=== PATIENT | female | born 1960 | race Caucasian/White ===

== ENCOUNTER 2023-06-09 17:46 | Emergency (ER) | payer OTHER ==
[2023-06-09 18:30] VITALS: RESP 20; TEMP 97.9
[2023-06-09] MEDS ORDERED: TORAdol 30 mg Injection IV ONE (19:08)
--- NOTE | 2023-06-09 19:14 | ERPHSYRPT ---
- History of Present Illness Time Seen by Provider: 06/09/23 19:00 Historian: patient Exam Limitations: no limitations Patient Subjective Stated Complaint: pt reports LLQ abd pain with cramping, urinary frequency, urgency and dribbling Triage Nursing Assessment: pt is aox3, pt appears in pain, pupils perrl, afebrile, resps easy and non labored, cap refill < 3 seconds, radial pulses strong and equal, pt abd soft, tender to the LLQ, bowel sounds present, hyperactive, pt skin pink warm dry. Physician History: 63 years old female with past medical history of hyperlipidemia, presenting to the emergency room complaining of left lower quadrant abdominal pain described as spasms that she has been having for the last couple of hours with nausea and vomiting x4. She is also having loose bowel movements but no bleeding per rectum. The patient is also having some urinary frequency and not sure if she is having UTI. She had UTIs in the past and it feels the same. She is having the chills. She took some tdfi-[id number]-[id number] pain medications, she does not recall the name but that did not seem to help with her pain. Allergies/Adverse Reactions: No Known Drug Allergies Allergy (Unverified 06/09/23 18:29) Home Medications: Escitalopram Oxalate [Lexapro] 10 mg PO DAILY 06/09/23 [History] Thyroid,Pork [[place] Thyroid] 15 mg PO DAILY 06/09/23 [History] Hx Tetanus, Diphtheria Vaccination/Date Given: Yes Hx Influenza Vaccination/Date Given: Yes Hx Pneumococcal Vaccination/Date Given: No Immunizations Up to Date: Yes Travel Risk - International Travel Have you traveled outside of the country in past 3 weeks: No - Coronavirus Screening Are you exhibiting any of the following symptoms?: No Close contact with a COVID-19 positive Pt in past 14-21 Days: No - Vaccine Status Have you recieved a Covid-19 vaccination: Yes 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 - Vaccination Dates Dates if Unknown: unk - Review of Systems Constitutional: No Symptoms, Chills Eyes: No Symptoms Ears, Nose, & Throat: No Symptoms Respiratory: No Cough, No Dyspnea Cardiac: No Chest Pain, No Edema, No Syncope Abdominal/Gastrointestinal: Abdominal Pain, Nausea, Vomiting, Diarrhea Genitourinary Symptoms: Frequency, No Dysuria Musculoskeletal: No Back Pain, No Neck Pain Skin: No Rash Neurological: No Dizziness, No Focal Weakness, No Sensory Changes Psychological: No Symptoms Endocrine: No Symptoms All Other Systems: Reviewed and Negative - Past Medical History Neurological History: No Pertinent History Cardiac History: High Cholesterol Respiratory History: Other Endocrine Medical History: Hypothyroidism Musculoskeletal History: Other Other Medical History: hysterectomy (1994), COVID-19, seasonal allergies - Past Surgical History Past Surgical History: Yes Female Surgical History: Hysterectomy - Social History Smoking Status: Never smoker Exposure to second hand smoke: No Drug Use: none Patient Lives Alone: No - Nursing Vital Signs Nursing Vital Signs: Initial Vital Signs Temperature 97.9 F 06/09/23 18:17 Pulse Rate 67 06/09/23 18:17 Respiratory Rate 20 06/09/23 18:17 Blood Pressure 135/77 06/09/23 18:17 O2 Sat by Pulse Oximetry 99 06/09/23 18:17 Pain Scale Pain Intensity 4 - Physical Exam General Appearance: no apparent distress, alert Eye Exam: PERRL/EOMI, eyes nml inspection Ears, Nose, Throat Exam: normal ENT inspection, pharynx normal, moist mucous membranes Neck Exam: normal inspection, non-tender, supple, full range of motion Respiratory Exam: normal breath sounds, lungs clear, No respiratory distress Cardiovascular Exam: regular rate/rhythm, normal heart sounds Gastrointestinal/Abdomen Exam: soft, tenderness, other (Patient is having left lower quadrant tenderness and suprapubic tenderness.), No mass Back Exam: normal inspection, normal range of motion, No CVA tenderness, No vertebral tenderness Extremity Exam: normal inspection, normal range of motion, pelvis stable Neurologic Exam: alert, oriented x 3, cooperative, normal mood/affect, nml cerebellar function, sensation nml, No motor deficits Skin Exam: normal color, warm, dry SpO2: 99 Ordered Tests: Active Orders 24 hr Category Date Time Status CBC W DIFF Stat Lab 06/09/23 19:25 Completed CMP Stat Lab 06/09/23 19:25 Completed CULTURE,URINE Stat Lab 06/09/23 19:10 Received LIPASE Stat Lab 06/09/23 19:25 Completed UA W/RFX UR CULTURE Stat Lab 06/09/23 19:10 Completed Medication Summary Discontinued Medications Generic Name Dose Route Start Last Admin Trade Name Freq PRN Reason Stop Dose Admin Piperacillin Sod/Tazobactam 100 mls @ 200 mls/hr 06/09/23 20:13 06/09/23 20:22 Sod 3.375 gm/ Sodium Chloride IV 06/09/23 20:42 200 mls/hr STAT ONE Administration Sodium Chloride Confirm 06/09/23 20:21 Sodium Chloride 100ml Mini-Bag Plus Administered 06/09/23 20:22 Dose 100 mls @ ud IV .STK-MED ONE Ketorolac Tromethamine 30 mg 06/09/23 19:08 06/09/23 19:33 Ketorolac Tromethamine 30 Mg/Ml Inj IV 06/09/23 19:09 30 mg STAT ONE Administration Ketorolac Tromethamine Confirm 06/09/23 19:31 Ketorolac Tromethamine 30 Mg/Ml Inj Administered 06/09/23 19:32 Dose 30 mg .ROUTE .STK-MED ONE Piperacillin Sod/Tazobactam Sod Confirm 06/09/23 20:21 Piperacillin/Tazobactam Sodium 3.375 Gm Vial Administered 06/09/23 20:22 Dose 3.375 gm IV .STK-MED ONE Lab/Rad Data: Laboratory Result Diagrams 06/09/23 19:25 06/09/23 19:25 Laboratory Results 06/09/23 06/09/23 06/09/23 Range/Units 19:25 19:25 19:10 WBC 16.8 H (4.0-10.5) x10^3/uL RBC 4.81 (4.1-5.4) x10^6/uL Hgb 15.0 (12.0-16.0) g/dL Hct 44.5 (35-47) % MCV 92.5 (78-100) fL MCH 31.2 (26-32) pg MCHC 33.7 (32-36) g/dL RDW 11.6 (11.5-14.0) % Plt Count 261 (150-450) x10^3/uL MPV 8.9 (7.5-11.0) fL Gran % 88.3 H (36.0-66.0) % Immature Gran % (Auto) 0.3 (0.00-0.4) % Nucleat RBC Rel Count 0.0 (0.00-0.1) % Eos # (Auto) 0.01 (0-0.5) x10^3/uL Immature Gran # (Auto) 0.05 H (0.00-0.03) x10^3u/L Absolute Lymphs (auto) 1.03 (1.0-4.6) x10^3/uL Absolute Monos (auto) 0.83 (0.0-1.3) x10^3/uL Absolute Nucleated RBC 0.00 (0.00-0.01) x10^3u/L Lymphocytes % 6.1 L (24.0-44.0) % Monocytes % 5.0 (0.0-12.0) % Eosinophils % 0.1 (0.00-5.0) % Basophils % 0.2 (0.0-0.4) % Absolute Granulocytes 14.79 H (1.4-6.9) x10^3/uL Basophils # 0.04 (0-0.4) x10^3/uL Sodium 138 (137-145) mmol/L Potassium 3.5 (3.5-5.1) mmol/L Chloride 102 (98-107) mmol/L Carbon Dioxide 27 (22-30) mmol/L Anion Gap 12.9 (5-15) MEQ/L BUN 18 H (7-17) mg/dL Creatinine 0.63 (0.52-1.04) mg/dL Estimated GFR 99.0 ML/MIN Glucose 99 (74-106) mg/dL Calcium 9.6 (8.4-10.2) mg/dL Total Bilirubin 0.50 (0.2-1.3) mg/dL AST 27 (14-36) U/L ALT 32 (0-35) U/L Alkaline Phosphatase 55 (38-126) U/L Serum Total Protein 7.0 (6.3-8.2) g/dL Albumin 4.5 (3.5-5.0) g/dL Lipase 445 H (23-300) U/L Urine Color [place] A (Yellow) Urine Appearance Cloudy A (Clear) Urine pH 5.0 (4.6-8.0) Ur Specific [place] 1.025 (1.005-1.030) Urine Protein 100 A (Negative) Urine Glucose (UA) Negative (Negative) mg/dL Urine Ketones Trace A (Negative) Urine Blood Negative (Negative) Urine Nitrite Positive A (Negative) Urine Bilirubin Small A (Negative) Urine Urobilinogen 1.0 A (0.2) mg/dL Ur Leukocyte Esterase Large A (Negative) U Hyaline Cast (Auto) NONE SEEN (0-2) /LPF Urine Microscopic RBC 3-5 (0-5) /HPF Urine Microscopic WBC >100 A (0-5) /HPF Ur Epithelial Cells None Seen (None Seen) /HPF Urine Bacteria Few A (None Seen) /HPF Urine Culture Reflexed YES (NO) - Progress Progress: unchanged, re-examined Progress Note: 06/09/23 19:13 63 years old female with past medical history of hyperlipidemia, presenting to the emergency room complaining of left lower quadrant abdominal pain described as spasms that she has been having for the last couple of hours with nausea and vomiting x4. She is also having loose bowel movements but no bleeding per rectum. The patient is also having some urinary frequency and not sure if she is having UTI. She had UTIs in the past and it feels the same. She is having the chills. She took some lyls-ecv-csanqin pain medications, she does not recall the name but that did not seem to help with her pain. Emergency room course and medical decision making. UTI Diverticulitis Kidney stone Hernia. The patient be given Toradol 30 mg IV, check CBC, CMP, UA, lipase. 06/09/23 20:15 The patient's work-up revealed elevated white count 16.8 hemoglobin 15 hematocrit 44. Urinalysis positive nitrites, more than 100 white blood cells, large leukocyte esterase and few bacteria. Her lipase elevated at 445. We will order a CT scan of abdomen and pelvis with contrast. 06/09/23 21:11 The patient is feeling much better after the above treatment. She is refusing the CAT scan of the abdomen and pelvis bleeding etc. UTI. She is also requesting sulfa medications claiming that is the only antibiotic which works for her. The patient will be discharged home on Bactrim DS twice a day for 7 days. She needs to rest increase her fluid intake. Follow-up with your family physician in 2 to 3 days. Follow-up as needed for any worsening symptoms. - Departure Departure Disposition: Home Clinical Impression: UTI (urinary tract infection), Left lower quadrant abdominal pain Condition: Stable Critical Care Time: No Referrals: Kristen WALKER [Primary Care Provider] - Follow up/PCP as directed Prescriptions: Smz/Tmp Ds Tablet [Bactrim Ds Tablet] 1 udtab PO BID #14 tablet
[2023-06-09 19:30] LABS: ADD URINE CULTURE? YES (NO); Appearance Cloudy (Clear); Bacteria Few /HPF (None Seen); Bilirubin Small (Negative); Blood Negative (Negative); Epithelial Cells None Seen /HPF (None Seen); Glucose, Urine Negative (Negative); Hyaline Casts NONE SEEN /LPF (0-2); Ketones Trace (Negative); Leukocyte Esterase Large (Negative); Nitrite Positive (Negative); Protein,Urine Dip 100 (Negative); Specific Gravity 1.025 (1.005-1.030); WBC >100 /HPF (0-5)
[2023-06-09 19:30] LABS: Absolute Neutrophil Ct (ANC) 14.79 x10^3/uL (1.4-6.9); BASOPHIL % 0.2 % (0.0-0.4); Basophil (Absolute #) 0.04 x10^3/uL (0-0.4); Eosinophil % 0.1 % (0.00-5.0); Eosinophil (Absolute #) 0.01 x10^3/uL (0-0.5); Hematocrit 44.5 % (35-47); IMMATURE GRAN # 0.05 x10^3u/L (0.00-0.03); IMMATURE GRAN % 0.3 % (0.00-0.4); Lymphocyte (Absolute #) 1.03 x10^3/uL (1.0-4.6); Lymphocytes % 6.1 % (24.0-44.0); Mean Cell Volume 92.5 fL (78-100); Mean Corpuscular Hemoglobin 31.2 pg (26-32); Mean Corpuscular Hgb Concent. 33.7 g/dL (32-36); Mean Platelet Volume 8.9 fL (7.5-11.0); Monocyte (Absolute #) 0.83 x10^3/uL (0.0-1.3); Neutrophil % 88.3 % (36.0-66.0); Platelet Count 261 x10^3/uL (150-450); Red Blood Count 4.81 x10^6/uL (4.1-5.4); Red Cell Distribution Width 11.6 % (11.5-14.0); White Blood Count 16.8 x10^3/uL (4.0-10.5)
[2023-06-09] MEDS ORDERED: TORAdol 30 mg Injection ONE (19:31)
[2023-06-09 19:45] LABS: ALBUMIN 4.5 g/dL (3.5-5.0); ANION GAP 12.9 MEQ/L (5-15); BILIRUBIN,TOTAL 0.5 mg/dL (0.2-1.3); Calcium 9.6 mg/dL (8.4-10.2); Creatinine 1 0.63 mg/dL (0.52-1.04); Potassium 3.5 mmol/L (3.5-5.1)
[2023-06-09] MEDS ORDERED: PIPERACILLIN/TAZOBACTAM 3.375 GM in Sodium Chloride 100ML MINI-BAG PLUS 100 ML IV ONE (20:13)
[2023-06-09 20:16] VITALS: O2SAT 99
[2023-06-09] MEDS ORDERED: Sodium Chloride 100ML MINI-BAG PLUS 100 ML IV ONE (20:21)
[2023-06-09] MEDS ORDERED: PIPERACILLIN/TAZOBACTAM IV ONE (20:21)
[2023-06-09 21:05] VITALS: BP 111/74; PULSE 71
== END 2023-06-09 21:21 | disposition home or self-care (01) ==
LOC: ED 17:46
DX: N39.0 Urinary tract infection, site not specified (principal); R10.32 Left lower quadrant pain; R11.2 Nausea with vomiting, unspecified; R19.7 Diarrhea, unspecified; R35.0 Frequency of micturition; E78.5 Hyperlipidemia, unspecified; Z79.899 Other long term (current) drug therapy; Z86.16 Personal history of COVID-19
CPT/HCPCS: 36415; 80053; 81001; 83690; 85025; 87077; 87086; 87186; 96365; 96374; 99283; J1885

== ENCOUNTER 2024-08-17 17:24 | Emergency (ER) | payer MEDICARE, OTHER ==
[2024-08-17 17:51] VITALS: TEMP 98.1
--- NOTE | 2024-08-17 17:58 | ERPHSYRPT ---
- History of Present Illness Time Seen by Provider: 08/17/24 17:48 Source: patient Exam Limitations: no limitations Patient Subjective Stated Complaint: Urinary retention Triage Nursing Assessment: Patient ambulated back to ED and transferred self to bed. Patient A+O X 3. Patient's skin pink, warm and dry. Patient complains of urinary retention, urgency, freqency when urinating since last night. Patient complains of lower abominal cramping /. Patient denies N/V or diarrhea. Physician History: Pt states since early this morning she has had bladder spasms, lower abdominal cramping, urgency, frequency and is only dribbling urine. Pt denies low back pain, fever, chest pain, shortness of air. Allergies/Adverse Reactions: No Known Drug Allergies Allergy (Verified 08/17/24 17:38) Home Medications: Escitalopram Oxalate [Lexapro] 10 mg PO DAILY 06/09/23 [History] Thyroid,Pork [[place] Thyroid] 15 mg PO DAILY 06/09/23 [History] Hx Tetanus, Diphtheria Vaccination/Date Given: Yes Hx Influenza Vaccination/Date Given: Yes Hx Pneumococcal Vaccination/Date Given: No Travel Risk - International Travel Have you traveled outside of the country in past 3 weeks: No - Emerging Infectious Disease Are you exhibiting symptoms associated with any current EIDs: No - Review of Systems Constitutional: No Fever Respiratory: No Dyspnea Cardiac: No Chest Pain Genitourinary Symptoms: Frequency, Urgency, Other (urinating small amounts today) Musculoskeletal: No Back Pain Neurological: No Headache - Past Medical History Pertinent Past Medical History: Yes Neurological History: No Pertinent History Cardiac History: High Cholesterol Respiratory History: Other Endocrine Medical History: Hypothyroidism Musculoskeletal History: Other Other Medical History: hysterectomy (1994), COVID-19, seasonal allergies - Past Surgical History Past Surgical History: Yes Female Surgical History: Hysterectomy - Social History Smoking Status: Never smoker Exposure to second hand smoke: No Drug Use: none Patient Lives Alone: No - Social Determinants of Health Will the patient participate in the screening: Yes Do you worry about a steady place to live?: No Do you have any problems with any of the following?: No known problems In the past 12 months,have you had to go without utilities?: No Transportation Issues: No Has anyone in your support network made you feel unsafe?: No Have you or anyone in your house had to go without enough: No - Nursing Vital Signs Nursing Vital Signs: Initial Vital Signs Temperature 98.1 F 08/17/24 17:42 Pulse Rate 68 08/17/24 17:42 Respiratory Rate 20 08/17/24 17:42 Blood Pressure 107/72 08/17/24 17:42 O2 Sat by Pulse Oximetry 95 08/17/24 17:42 Pain Scale Pain Intensity 2 - Physical Exam General Appearance: alert Eye Exam: eyes nml inspection Ears, Nose, Throat Exam: TMs normal, pharynx normal Neck Exam: normal inspection Respiratory Exam: lungs clear, airway intact Cardiovascular Exam: normal heart sounds Gastrointestinal/Abdomen Exam: normal bowel sounds Back Exam: normal inspection, No CVA tenderness Extremity Exam: No pedal edema Neurologic Exam: alert, cooperative Skin Exam: warm, dry SpO2 Interpretation: normal SpO2: 95 O2 Delivery: Room Air - Course Nursing assessment & vital signs reviewed: Yes Ordered Tests: Active Orders 24 hr Category Date Time Status IV Insertion STAT Care 08/17/24 18:46 Active ABDOMEN AND PELVIS W/0 CONTRAS [CT] Stat Exams 08/17/24 18:46 Ordered AMYLASE Stat Lab 08/17/24 18:46 Ordered CBC W DIFF Stat Lab 08/17/24 18:46 Ordered CMP Stat Lab 08/17/24 18:46 Ordered CULTURE,URINE Stat Lab 08/17/24 17:39 Received LIPASE Stat Lab 08/17/24 18:46 Ordered MAGNESIUM Stat Lab 08/17/24 18:47 Ordered UA W/RFX UR CULTURE Stat Lab 08/17/24 17:39 Completed Medication Summary Generic Name Dose Route Start Last Admin Trade Name Justo PRN Reason Stop Dose Admin Acetaminophen 1,000 mg in 100 mls @ 400 mls/hr 08/17/24 18:51 Ofirmev IV 08/17/24 19:05 1HRPRIOR ONE Lab/Rad Data: Laboratory Results 08/17/24 Range/Units 17:39 Urine Color Dark Yellow A (Yellow) Urine Appearance Clear (Clear) Urine pH 7.0 (4.6-8.0) Ur Specific [place] 1.020 (1.005-1.030) Urine Protein Trace A (Negative) Urine Glucose (UA) Negative (Negative) mg/dL Urine Ketones Negative (Negative) Urine Blood Negative (Negative) Urine Nitrite Positive A (Negative) Urine Bilirubin Negative (Negative) Urine Urobilinogen 1.0 A (0.2) mg/dL Ur Leukocyte Esterase Negative (Negative) U Hyaline Cast (Auto) NONE SEEN (0-2) /LPF Urine Microscopic RBC 3-5 (0-5) /HPF Urine Microscopic WBC 0-2 (0-5) /HPF Ur Epithelial Cells None Seen (None Seen) /HPF Urine Bacteria None Seen (None Seen) /HPF Urine Culture Reflexed ORDERED SEPARATELY (NO) - Progress Progress: unchanged Progress Note: 08/17/24 18:55 Pt refuses IV, bloodwork and CT abd/pel. Pt wants to go home and follow up with her family doctor tomorrow. Counseled pt/family regarding: lab results, need for follow-up - Departure Departure Disposition: Home Clinical Impression: Urinary urgency, Abdominal pain Condition: Stable Critical Care Time: No Referrals: Kristen WALKER [Primary Care Provider] - Follow up/PCP as directed Instructions: Abdominal pain in adults - ED discharge instructions Additional Instructions: Follow up with private doctor tomorrow.
[2024-08-17 18:20] LABS: Appearance Clear (Clear); Bacteria None Seen /HPF (None Seen); Bilirubin Negative (Negative); Blood Negative (Negative); Epithelial Cells None Seen /HPF (None Seen); Glucose, Urine Negative (Negative); Hyaline Casts NONE SEEN /LPF (0-2); Ketones Negative (Negative); Leukocyte Esterase Negative (Negative); Nitrite Positive (Negative); Protein,Urine Dip Trace (Negative); WBC 0-2 /HPF (0-5)
[2024-08-17 18:34] VITALS: BP 115/65; PULSE 70; RESP 18
[2024-08-17 18:49] VITALS: O2SAT 95
[2024-08-17] MEDS ORDERED: OFIRMEV 1,000 MG/100 ML ML IV ONE (18:51)
== END 2024-08-17 19:09 | disposition home or self-care (01) ==
LOC: ED 17:24
DX: R39.15 Urgency of urination (principal); R10.30 Lower abdominal pain, unspecified; E78.5 Hyperlipidemia, unspecified; Z79.899 Other long term (current) drug therapy
CPT/HCPCS: 81001; 87086; 99283